=== PATIENT | male | born 1980 | race Caucasian/White ===

== ENCOUNTER 2018-07-27 12:56 | Emergency (ER) | payer MEDICAID ==
[~2018-07-27] VITALS: Ht 167.6 cm; Wt 97.7 kg
[2018-07-27 16:25] VITALS: BP 115/67
[2018-07-27] MEDS ORDERED: PERTUSS(ACELL),DIPH,TET VAC/PF 0.5 ML VIAL IM ONE (16:30)
== END 2018-07-27 16:26 | disposition home or self-care (01) ==
LOC: EMS 12:57
DX: S50.01XA Contusion of right elbow, initial encounter (principal); F15.90 Other stimulant use, unspecified, uncomplicated; W46.0XXA Contact with hypodermic needle, initial encounter; Y93.89 Activity, other specified; Y92.89 Other specified places as the place of occurrence of the external cause; Y99.8 Other external cause status
CPT/HCPCS: 90715